=== PATIENT | female | born 1980 | race Caucasian/White ===

== ENCOUNTER 2020-05-10 16:55 | Emergency (ER) | payer SELFPAY ==
[2020-05-10 16:55] VITALS: BP 149/92; PULSE 83; RESP 22; TEMP 36.7; O2SAT 100
[2020-05-10 17:58] LABS: Add Urine Microscopic? YES; Appearance Urine Sl Cloudy (Clear); Bilirubin Urine Negative (Negative); Blood Urine Negative (Negative); Color Urine Yellow (Yellow); Glucose Urine UA Negative (Negative); Ketones Urine Negative (Negative); Leukocyte Esterase Ur Negative (Negative); Nitrate Urine Negative (Negative); Pregnancy On Board Control Positive; Protein Urine Negative (Negative); Specific Grav Ur >= 1.030 (1.010-1.020); Urine Pregnancy Test Negative; Urobilinogen Urine 0.2 mg/dL (0.2-1.0)
--- NOTE | 2020-05-10 18:13 | ED.GENADULT ---
HPI - General Adult General Chief complaint: Urogenital-Female Stated complaint: wants to be checked for STDs Time Seen by Provider: 05/10/20 17:05 Source: patient Mode of arrival: ambulatory Limitations: no limitations History of Present Illness HPI narrative: Patient comes in complaining of a bump in her private area and wants to be evaluated. She thinks she has an STD. She says she had some minimal green drainage the other day, and she is worried about it. Onset (ago): day(s) (60) Relieving factors: none Exacerbating factors: none Associated symptoms: denies other symptoms Related Data Home Medications Medication Instructions Recorded Confirmed No Home Medications 05/10/20 05/10/20 Allergies Allergy/AdvReac Type Severity Reaction Status Date / Time amoxicillin AdvReac Diarrhea Verified 05/10/20 17:44 Review of Systems Review of Systems: ROS unobtainable: Yes unobtainable due to medical condition Constitutional: Constitutional: Reports no additional constitutional complaints Eyes: Eyes: Reports no additional eye complaints ENT: Reports system reviewed and no additional complaints, except as documented Cardiovascular: Cardiovascular: Reports no additional cardiovascular complaints Respiratory: Respiratory: Reports no additional respiratory complaints Gastrointestinal: Gastrointestinal: Reports no additional gastrointestinal complaints Genitourinary: Genitourinary: Reports no additional female genitourinary complaints Musculoskeletal: Musculoskeletal: Reports no additional musculoskeletal complaints Integumentary/Breasts: Skin/Breast: Reports system reviewed and no additional complaints, except as docu Neurologic: Reports system reviewed and no additional complaints, except as documented Psychiatric: Psychiatric: Reports no additional psychiatric complaints Endocrine: Endocrine: Reports no additional endocrine complaints Hematologic/Lymphatic: Hematologic/Lymphatic: Reports no additional hematologic/lymphatic complaints Allergic/Immunologic: Allergic/Immunologic: Reports no additional allergic/immunologic complaints [facility] Past Medical History Medical History Head injury Surgical History Surgical History No significant past surgical history Family History Family History Father No significant family history Social History Social History Smoking status: Current every day smoker Tobacco type: cigarettes Substance use: current Exam Const: General: no acute distress Orientation/consciousness: patient oriented x3 HENMT: Head: normal to inspection Face and sinus: normal facial exam Mouth: Yes Normal oral and palatal mucosa present Throat: posterior oropharynx normal Eyes: Conjunctivae: conjunctivae normal Neck: Neck: normal visual inspection Chest: Chest palpation & inspection: normal inspection of the chest Resp: Effort & Inspection: normal respiratory effort Auscultation: clear to auscultation bilaterally Cardio: Rate: regular rate Rhythm: regular rhythm GI: GI Palp: Yes Soft to palpation (nontender) : Other: Limited pelvic exam done, Charis kenny. Exterior female organs appear within normal limits. She has what appears to be an ingrown hair, and is developing the equivalent of a pimple to the right of the labia. I could not feel any cyst or other abnormality in the right labia near this site where she complained of the bump hurting. This was limit of exam. Skin: General skin exam: normal color Neuro: General: patient oriented x3 Extrem: General: normal to inspection Psych: Appearance: grossly normal and other (pressured speech) Thought content: Yes Normal thought content present Course Course Emergency Course: Physical exam was done and communicate
[2020-05-10 18:15] LABS: Bacteria Urine 1+ /hpf; RBC Urine None seen /hpf (0-2); Squamous Epithelial Cell Urine Many /hpf (Few); WBC Urine None seen /hpf (0-3)
[2020-05-10 18:24] VITALS: RESP 14; O2SAT 100
--- NOTE | 2020-05-10 18:25 | PC.NURSE ---
PELVIC EXAM COMPLETED BY ERP WITH MARCO ANTONIO PRETTY AT BEDSIDE
[2020-05-10 19:28] LABS: HIV 1 P24 AG Negative (Negative); HIV 1/2 AB Negative (Negative)
[2020-05-15 20:07] LABS: Hepatitis A Antibody IgM Nonreactive; Hepatitis B Core Antibody Nonreactive (Nonreactive); Hepatitis B Surface Antigen Nonreactive (Nonreactive); Hepatitis C Signal to Cutoff 0.01 ratio (<1.00); Hepatitis C Virus Antibody Nonreactive (Nonreactive)
== END 2020-05-10 18:38 | disposition home or self-care (01) ==
PROVIDERS: Emergency Provider Emergency Medicine
DX: L73.1 Pseudofolliculitis barbae (principal)
CPT/HCPCS: 36415; 80074; 81001; 81025; 86703; 87491; 87591; 87661; 99282; 99284